=== PATIENT | male | born 1970 | race Caucasian/White ===

== ENCOUNTER → 2017-05-03 | Outpatient (CLI) | payer OTHER ==
--- NOTE | 2017-05-03 17:07 | KCIC ---
MR of the RIGHT elbow Indication: Lateral epicondylitis. Pain for several months. Technique: Standard multiplanar sequences are obtained. Findings: There is mild/moderate motion degradation. Anterior: Biceps tendon and brachialis tendon are intact. Posterior: The triceps tendon and insertion are intact. Medial: Common flexor tendon and ulnar collateral ligament are intact. Lateral: Mild signal and thickening suspected at the common extensor tendon although image is suboptimal due to motion. No evidence of high-grade acute rupture. Fluid: No significant effusion. Joints: No advanced DJD. Bones: No focal lesion. No acute fracture. Soft tissues: No concerning edema or fluid accumulation Ulnar nerve: Unremarkable Impression: There is some motion degradation, but there does appear to be at least mild common extensor tendinosis. Electronically signed by: Samson Ybarra MD (05/03/2017 5:04 PM) [id number]
== END | disposition home or self-care (01) ==
LOC: KCIC MRI 16:01
PROVIDERS: ATTEND Nurse Practitioner Family
DX: M77.11 Lateral epicondylitis, right elbow (principal)
CPT/HCPCS: 73221

== ENCOUNTER → 2017-06-15 | Outpatient (CLI) | payer OTHER ==
--- NOTE | 2017-06-15 17:01 | KCIC ---
Examination: MRI of the right hip without contrast HISTORY: History of right hip pain, worsening pain COMPARISON: None available Technique: Multiplanar, multisequence MR imaging of the right hip are performed without contrast. Findings: The right femoral head is within the acetabulum. The attachment of the hamstring tendons to the ischial tuberosity, the attachment of the iliopsoas tendon to the lesser trochanter, attachment of the gluteal tendons to the greater trochanter, attachment of the rectus femoris to the anterior-inferior iliac spine grossly appears intact. Mild joint space loss identified in the right hip joint. Minimal hip joint effusion identified. There is minimal amount of fluid identified in the undersurface of the gluteus minimus tendon probably bursal fluid. There is mild increased signal identified in the superior acetabula likely small subchondral cystic changes. There is mild superficial fraying of the labrum identified. In the superior labrum , there is a 4 mm increased signal identified in the in the labrum junction with the acetabulum, question a small labral tear or subchondral cystic change. IMPRESSION: 1. Small 4 mm increased signal identified in the superior labrum posteriorly, question a small labral tear or subchondral cystic change. Differentiation is difficult. This can be better evaluated with MR arthrogram. 2. Minimal amount of fluid identified in the undersurface of the gluteus minimus tendon at its greater trochanteric attachment probably bursitis. 3. Mild degenerative changes right hip joint with small subchondral cystic changes. Electronically signed by: Porfirio Onofre MD (06/15/2017 4:58 PM) [id number]
== END | disposition home or self-care (01) ==
LOC: KCIC MRI 16:11
PROVIDERS: ATTEND Nurse Practitioner Family
DX: M25.551 Pain in right hip (principal); M25.451 Effusion, right hip
CPT/HCPCS: 73721